=== PATIENT | male | born 1975 | race Caucasian/White ===

== ENCOUNTER 2023-06-22 15:20 | Inpatient (IN) | payer MEDICAID ==
[~2023-06-22] VITALS: Ht 152.4 cm; Wt 70.3 kg
[2023-06-22] MEDS ORDERED: ONDANSETRON HCL/PF 4 MG/2 ML VIAL IV PRN (17:30)
[2023-06-22] MEDS ORDERED: ACETAMINOPHEN ES 500 MG TABLET PO PRN (17:30)
[2023-06-22] MEDS ORDERED: LORAZEPAM INJ 2 MG/ML VIAL IV PRN (17:30)
[2023-06-22] MEDS ORDERED: HYDROCODONE/APAP 5/325MG TABLET PO PRN (17:30)
[2023-06-22] MEDS ORDERED: DEXTROSE 50%-WATER 50 ML DISP.SYRIN IV PRN (18:30)
[2023-06-22 20:00] VITALS: BP 175/93; TEMP 98.4; O2SAT 98
[2023-06-22] MEDS: hydrALAZINE HCL IV 20 MG VIAL IV PRN (20:52)
[2023-06-22] MEDS: BLOOD SUGAR DIAGNOSTIC 1 EACH STRIP IN SCH (22:01)
[2023-06-22] MEDS: INSULIN REGULAR, HUMAN 100 UNIT/ML 3 ML VIAL SQ PRN (22:10)
[2023-06-23] VITALS (7 sets, daily range): BP systolic 104–173; BP diastolic 50–94; TEMP 97.7–98.6; O2SAT 98–99
[2023-06-23 00:57] LABS: CHOLESTEROL 237 mg/dL (<200); HDL CHOLESTEROL 50 mg/dL (40-60); LDL 159 mg/dL (0-99); THYROID STIMULATING HORMONE 2.464 uIU/mL (0.358-3.74); TRIGLYCERIDES 149 mg/dL (30-150)
[2023-06-23] MEDS: hydrALAZINE HCL IV 20 MG VIAL IV PRN (04:49)
[2023-06-23] MEDS: BLOOD SUGAR DIAGNOSTIC 1 EACH STRIP IN SCH ×4 (06:30→21:24)
[2023-06-23] MEDS: INSULIN REGULAR, HUMAN 100 UNIT/ML 3 ML VIAL SQ PRN ×4 (06:32→21:28)
[2023-06-23 07:06] LABS: BASOPHILS # (AUTO) 0.1 K/uL (0.0-0.2); BASOPHILS % (AUTO) 0.5 % (0.0-2.0); EOSINOPHILS # (AUTO) 0.4 K/uL (0.0-0.7); EOSINOPHILS % (AUTO) 3.2 % (0.0-6.0); HEMATOCRIT 30 % (39-51); HEMOGLOBIN 10.4 g/dL (13.5-17.5); LYMPHOCYTES % (AUTO) 7.4 % (20.0-44.0); MEAN CORPUSCULAR HEMOGLOBIN 30 PG (26.0-33.0); MEAN CORPUSCULAR HGB CONC 35 g/dl (31.0-36.0); MEAN CORPUSCULAR VOLUME 87 fL (80-96); MONOCYTES # (AUTO) 0.6 K/uL (0.1-1.30); MONOCYTES % (AUTO) 4.3 % (2.0-12.0); NEUTROPHILS # (AUTO) 11.4 K/uL (1.8-8.9); NEUTROPHILS % (AUTO) 84.6 % (43.0-81.0); PLATELET COUNT (AUTO) 224 K/uL (150-450); RED BLOOD CELL COUNT(AUTO) 3.45 MIL/uL (4.5-6.0); RED CELL DISTRIBUTION WIDTH 12.1 % (11.5-15.0); WHITE BLOOD COUNT (AUTO) 13.4 K/uL (4.3-11.0)
[2023-06-23 07:20] LABS: CHOLESTEROL 250 mg/dL (<200); HDL CHOLESTEROL 50 mg/dL (40-60); LDL 161 mg/dL (0-99); TRIGLYCERIDES 171 mg/dL (30-150)
[2023-06-23 07:21] LABS: CALCIUM, SERUM 8.5 mg/dL (8.5-10.1); CREATININE 3.4 mg/dL (0.6-1.3); PHOSPHORUS 5.3 mg/dL (2.5-4.9); POTASSIUM 3.8 mmol/L (3.5-5.1)
[2023-06-23] MEDS: IV NS 0.9% 1,000 ML IV PRN (09:53)
[2023-06-23] MEDS: hydrALAZINE HCL 50 MG TABLET PO SCH ×3 (09:57→17:00)
[2023-06-23] MEDS: AMLODIPINE BESYLATE 10 MG TABLET PO SCH (09:57)
[2023-06-23] MEDS: ASPIRIN EC 81 MG TABLET.DR PO SCH (09:57)
[2023-06-23] MEDS: NITROGLYCERIN 30 GM TUBE TP SCH ×2 (11:50→20:46)
[2023-06-23] MEDS: METOPROLOL TARTRATE 50 MG TABLET PO SCH ×2 (11:57→17:40)
[2023-06-23 17:58] LABS: APPEARANCE,URINE CLEAR (CLEAR); BILIRUBIN,URINE NEGATIVE (NEGATIVE); BLOOD, URINE NEGATIVE Ery/uL (NEGATIVE); COLOR,URINE YELLOW (YELLOW); KETONES,URINE TRACE mg/dL (NEGATIVE); LEUKOCYTE ESTERASE ,URINE NEGATIVE (NEGATIVE); NITRITE, URINE NEGATIVE (NEGATIVE); PROTEIN,URINE 3+ mg/dl (NEGATIVE); UGLUCOSE 2+ mg/dL (NEGATIVE); UROBILINOGEN,URINE 0.2 EU/dL (0.2)
[2023-06-23 18:03] LABS: CREATININE, URINE 118.5 MG/DL (30.0-125.0); URINE TOTAL PROTEIN 2631.2 mg/dL (0-11.9)
[2023-06-23 18:40] LABS: ADD URINE CULTURE NO; BACTERIA,URINE 1+ /HPF (None Seen); COARSE GRANULAR CASTS,URINE Few /LPF (None Seen); HYALINE CASTS, URINE Few /LPF (None Seen); RBC,URINE 0-2 /HPF (0-2); SQUAMOUS EPITHELIAL CELL,UR Few /HPF (None Seen); WBC,URINE 0-2 /HPF (0-3)
[2023-06-23 18:42] LABS: EOSINOPHIL,URINE None Seen
[2023-06-24] VITALS: BP 129/76; TEMP 97.6; O2SAT 98
[2023-06-24] MEDS: METOPROLOL TARTRATE 50 MG TABLET PO SCH ×4 (00:21→17:21)
[2023-06-24] MEDS: IV NS 0.9% 1,000 ML IV PRN (03:11)
[2023-06-24 04:00] VITALS: BP 127/75; TEMP 98.2; O2SAT 98
[2023-06-24 06:21] LABS: BASOPHILS % (AUTO) 0.4 % (0.0-2.0); EOSINOPHILS # (AUTO) 0.6 K/uL (0.0-0.7); EOSINOPHILS % (AUTO) 5.1 % (0.0-6.0); HEMATOCRIT 29 % (39-51); LYMPHOCYTES # (AUTO) 1.9 K/uL (0.8-4.8); LYMPHOCYTES % (AUTO) 16.4 % (20.0-44.0); MEAN CORPUSCULAR HEMOGLOBIN 30 PG (26.0-33.0); MEAN CORPUSCULAR HGB CONC 34 g/dl (31.0-36.0); MEAN CORPUSCULAR VOLUME 88 fL (80-96); MONOCYTES # (AUTO) 0.6 K/uL (0.1-1.30); MONOCYTES % (AUTO) 5.2 % (2.0-12.0); NEUTROPHILS # (AUTO) 8.4 K/uL (1.8-8.9); NEUTROPHILS % (AUTO) 72.9 % (43.0-81.0); PLATELET COUNT (AUTO) 240 K/uL (150-450); RED BLOOD CELL COUNT(AUTO) 3.33 MIL/uL (4.5-6.0); RED CELL DISTRIBUTION WIDTH 12.5 % (11.5-15.0); WHITE BLOOD COUNT (AUTO) 11.5 K/uL (4.3-11.0)
[2023-06-24] MEDS: BLOOD SUGAR DIAGNOSTIC 1 EACH STRIP IN SCH ×4 (06:35→22:11)
[2023-06-24] MEDS: INSULIN REGULAR, HUMAN 100 UNIT/ML 3 ML VIAL SQ PRN ×3 (06:36→17:21)
[2023-06-24 07:00] VITALS: BP 135/76; TEMP 98.2; O2SAT 98
[2023-06-24 07:01] LABS: BILIRUBIN,TOTAL 0.2 mg/dL (0.2-1.0); CALCIUM, SERUM 8.6 mg/dL (8.5-10.1); CREATININE 4.1 mg/dL (0.6-1.3); PHOSPHORUS 5.8 mg/dL (2.5-4.9); POTASSIUM 4.1 mmol/L (3.5-5.1)
[2023-06-24] MEDS: ASPIRIN EC 81 MG TABLET.DR PO SCH (08:39)
[2023-06-24] MEDS: AMLODIPINE BESYLATE 10 MG TABLET PO SCH (08:39)
[2023-06-24] MEDS: hydrALAZINE HCL 50 MG TABLET PO SCH ×3 (08:39→17:22)
[2023-06-24] MEDS: NITROGLYCERIN 30 GM TUBE TP SCH ×2 (08:41→21:00)
[2023-06-24 16:00] VITALS: BP 114/66; TEMP 97.9; O2SAT 99
[2023-06-24 21:20] VITALS: BP 97/60; TEMP 98.2; O2SAT 97
[2023-06-25] MEDS: METOPROLOL TARTRATE 50 MG TABLET PO SCH ×3 (00:47→12:10)
[2023-06-25 06:31] LABS: BASOPHILS # (AUTO) 0.1 K/uL (0.0-0.2); BASOPHILS % (AUTO) 0.6 % (0.0-2.0); EOSINOPHILS # (AUTO) 1.3 K/uL (0.0-0.7); EOSINOPHILS % (AUTO) 12.3 % (0.0-6.0); HEMATOCRIT 28 % (39-51); HEMOGLOBIN 9.9 g/dL (13.5-17.5); LYMPHOCYTES % (AUTO) 18.9 % (20.0-44.0); MEAN CORPUSCULAR HEMOGLOBIN 31 PG (26.0-33.0); MEAN CORPUSCULAR HGB CONC 35 g/dl (31.0-36.0); MEAN CORPUSCULAR VOLUME 88 fL (80-96); MONOCYTES # (AUTO) 0.6 K/uL (0.1-1.30); MONOCYTES % (AUTO) 6.1 % (2.0-12.0); NEUTROPHILS # (AUTO) 6.5 K/uL (1.8-8.9); NEUTROPHILS % (AUTO) 62.1 % (43.0-81.0); PLATELET COUNT (AUTO) 248 K/uL (150-450); RED BLOOD CELL COUNT(AUTO) 3.23 MIL/uL (4.5-6.0); RED CELL DISTRIBUTION WIDTH 12.4 % (11.5-15.0); WHITE BLOOD COUNT (AUTO) 10.5 K/uL (4.3-11.0)
[2023-06-25] MEDS: INSULIN REGULAR, HUMAN 100 UNIT/ML 3 ML VIAL SQ PRN (06:41)
[2023-06-25] MEDS: BLOOD SUGAR DIAGNOSTIC 1 EACH STRIP IN SCH ×2 (06:43→12:00)
[2023-06-25 08:00] VITALS: BP 120/67; TEMP 99.1; O2SAT 96
[2023-06-25 08:03] LABS: CALCIUM, SERUM 8.2 mg/dL (8.5-10.1); CREATININE 4.5 mg/dL (0.6-1.3); POTASSIUM 4.2 mmol/L (3.5-5.1)
[2023-06-25] MEDS ORDERED: BLOO1EAC70 MC (08:32)
[2023-06-25] MEDS ORDERED: METO50TA16 PO (08:32)
[2023-06-25] MEDS ORDERED: AMLO-213 PO (08:32)
[2023-06-25] MEDS ORDERED: HYDR-4077 PO (08:32)
[2023-06-25] MEDS ORDERED: INSU100V7 SQ (08:32)
[2023-06-25] MEDS ORDERED: ACET-73 PO (08:32)
[2023-06-25] MEDS: ASPIRIN EC 81 MG TABLET.DR PO SCH (08:41)
[2023-06-25] MEDS: AMLODIPINE BESYLATE 10 MG TABLET PO SCH (08:41)
[2023-06-25] MEDS: hydrALAZINE HCL 50 MG TABLET PO SCH (08:41)
[2023-06-25] MEDS: NITROGLYCERIN 30 GM TUBE TP SCH (08:42)
[2023-06-25 12:10] VITALS: BP 120/72
[2023-06-26 02:07] LABS: PTH, INTACT 49 pg/mL (15-65)
[2023-06-26 15:07] LABS: *SPE A/G RATIO 0.7 (0.7-1.7); *SPE ALBUMIN 2.2 g/dL (2.9-4.4); *SPE ALPHA-1-GLOBULIN 0.3 g/dL (0.0-0.4); *SPE ALPHA-2-GLOBULIN 0.6 g/dL (0.4-1.0); *SPE GLOBULIN, TOTAL 3.1 g/dL (2.2-3.9); *SPE M-SPIKE Not Observed g/dL (Not Observed); *SPE PROTEIN TOTAL 5.3 g/dL (6.0-8.5); *SPEGAMMA GLOBULIN 1.2 g/dL (0.4-1.8)
== END 2023-06-25 14:00 | disposition home or self-care (01) | DRG 199 ==
LOC: TELE 16:55 → MED 06-24 12:06
PROVIDERS: ADMIT Nurse Practitioner Family; ATTEND Nurse Practitioner Family
DX: I16.0 Hypertensive urgency (principal); E43 Unspecified severe protein-calorie malnutrition; N17.9 Acute kidney failure, unspecified; E11.22 Type 2 diabetes mellitus with diabetic chronic kidney disease; I12.9 Hypertensive chronic kidney disease with stage 1 through stage 4 chronic kidney disease, or unspecified chronic kidney disease; N18.9 Chronic kidney disease, unspecified; E11.65 Type 2 diabetes mellitus with hyperglycemia
CPT/HCPCS: 36415; 71045-TC; 76770-TC; 80048-TC; 80053-TC; 80061-TC; 81001; 82550-TC; 82570-TC; 82962-TC; 83735-TC; 83970; 84100-TC; 84155; 84165; 84300-TC; 84439-TC; 84443-TC; 84484-TC; 85025-TC; 93307-TC; A4223; G0378; J0360; J1815; J2405; J3490; J7030

== ENCOUNTER 2024-10-24 15:56 | Emergency (ER) | payer MEDICAID, OTHER ==
[~2024-10-24] VITALS: Ht 165.1 cm; Wt 59.0 kg
[~2024-10-24 15:56] MED LIST: AMLO-213 PO; HYDR-4077 PO; INSULIN GLARGINE SQ; METO50TA16 PO; SEVE800T7 PO; SODI650T PO
[2024-10-24] MEDS ORDERED: hydrALAZINE HCL IV 20 MG VIAL ONE (16:54)
[2024-10-24] MEDS: hydrALAZINE HCL IV 20 MG VIAL IV ONE (16:56)
[2024-10-24 18:07] VITALS: BP 129/68; TEMP 98; O2SAT 99
== END 2024-10-24 18:12 | disposition home or self-care (01) ==
LOC: ER 16:02
DX: I12.0 Hypertensive chronic kidney disease with stage 5 chronic kidney disease or end stage renal disease (principal); E11.22 Type 2 diabetes mellitus with diabetic chronic kidney disease; N18.6 End stage renal disease; Z79.899 Other long term (current) drug therapy; Z99.2 Dependence on renal dialysis
CPT/HCPCS: 99285; 96374; 93005; J0360